=== PATIENT | female | born 1995 | race Caucasian/White ===

== ENCOUNTER 2016-02-16 18:14 | Emergency (ER) | payer OTHER ==
[~2016-02-16] VITALS: Ht 162.6 cm; Wt 56.6 kg
[2016-02-16 20:56] VITALS: BP 122/74
== END 2016-02-16 20:57 | disposition home or self-care (01) ==
LOC: EME 18:14
DX: R59.0 Localized enlarged lymph nodes (principal); Z87.891 Personal history of nicotine dependence
CPT/HCPCS: 99281; 99283